=== PATIENT | female | born 1940 | race Caucasian/White ===

== ENCOUNTER 2024-07-22 05:58 | Emergency (ER) | payer OTHER ==
[~2024-07-22] VITALS: Ht 170.2 cm; Wt 71.0 kg
[2024-07-22 05:59] VITALS: TEMP 98
[2024-07-22 07:35] VITALS: BP 129/68; PULSE 72; RESP 16; O2SAT 99
== END 2024-07-22 08:03 | disposition home or self-care (01) ==
LOC: EMS 06:01
DX: K56.41 Fecal impaction (principal); Z88.0 Allergy status to penicillin; Z90.710 Acquired absence of both cervix and uterus
CPT/HCPCS: 99281; 99283